=== PATIENT | female | born 1970 | race Caucasian/White ===

== ENCOUNTER → 2016-08-21 | Outpatient (CLI) | payer BC ==
[~2016-08-21] MED LIST: PRENTAB26 PO
--- NOTE | 2016-08-21 15:58 | MAMMOGRAPHY REPORT ---
BILATERAL DIGITAL DIAGNOSTIC MAMMOGRAM TOMOSYNTHESIS WITH CAD AND TARGETED LEFT ULTRASOUND: 7 CLINICAL HISTORY: 45-year-old woman presents for annual bilateral mammography in follow-up of probab le complicated cysts within the 10:00, 2:00 and 2:30 axes of the left breast. TECHNIQUE: Bilateral breast tomosynthesis in addition to standard 2D mammography was performed. Curr ent study was also evaluated with a Computer Aided Detection (CAD) system. COMPARISON: Comparison is made to exams dated: 05/23/2016 ultrasound, 05/23/2016 mammogram, 08/16/19 16 mammogram, and 12/01/2013 mammogram - [facility]. BREAST COMPOSITION: The tissue of both breasts is extremely dense, which lowers the sensitivity of mammography. FINDINGS: There is stable nodularity in the posterior left breast, best seen on the MLO view. Howev er, there is decreased size of a previously observed 9 mm mass in the lateral posterior left breast on the CC view, confirming a fluctuating cyst. There is a stable to decreased 12 mm circumscribed m ass in the far posterior right breast, along the posterior nipple line on the MLO view. There are s cattered and grouped stable microcalcifications diffusely throughout each breast. No spiculated or irregular mass, focal architectural distortion or new cluster of suspicious microcalcifications is s een bilaterally. Targeted ultrasound was performed in the 10:00, 2:00, 2:30 and 3:00 axes of the left breast. In the 10:00 breast, 17 m from the nipple, a parallel lobulated hypoechoic solid versus cystic mass is aga in seen. It currently measures 3.8 x 2.3 x 4.2 mm. Previous measurements based on the 08/23/2015 u ltrasound were 4.9 x 2.8 x 5.2 mm and this is considered unchanged given slight differences in measu ring technique. In the 2:00 axis, 2 cm from the nipple, a circumscribed oval parallel mixed hypoech oic and isoechoic masses again identified, measuring 4.0 x 2.2 x 7.0 mm, previously measured 5.2 x 2 .1 x 7.2 mm. This is also considered unchanged given slight differences in technique. However the hypoechoic mass in the 2:30 left breast, 2 cm from the nipple has decreased in size measuring 2.0 x 1.6 x 1.9 mm. incidental note is made of an anechoic benign simple cyst in the 3:00 left breast anibal uring 8.2 mm. Another 12 month follow-up is recommended for the above probable complicated cysts to ensure at least 2 years of stability to confirm benignity. IMPRESSION: ACR-BI-RADS CATEGORY 3: PROBABLY BENIGN, TARGETED ULTRASOUND ACR-BI-RADS CATEGORY 3: NH OBABLY BENIGN Bilateral screening mammography as well as repeat targeted left breast ultrasound is recommended in 12 months to ensure stability of probable complicated cysts in the 10:00 and 2:00 axes of the left b reast. The overall picture bilaterally is that of benign fibrocystic changes given multiple fluctua ting masses and diffuse bilateral microcalcifications. These results and recommendations were discussed with the patient at the time of the exam. Approximately 10% of breast cancers are not detected with mammography. A negative mammographic repor t should not delay biopsy if a clinically suggestive mass is present. Emily Gonzalez M.D. ay/:08/21/2016 13:25:35 Church Administrator: Eleanor REYES(Eric)([place]), [facility] letter sent: Follow Up Recommended 3 BI-RADS Code: ACR-BI-RADS Category 3: Probably Benign Ultrasound BI-RADS: ACR-BI-RADS Category 3: P robably Benign
== END | disposition home or self-care (01) ==
LOC: C.MAMM 09:42
PROVIDERS: ATTEND Obstetrics & Gynecology
DX: N60.02 Solitary cyst of left breast (principal); N63 Unspecified lump in breast; R92.0 Mammographic microcalcification found on diagnostic imaging of breast

== ENCOUNTER → 2016-08-29 | Outpatient (CLI) | payer BC | END | disposition home or self-care (01) | LOC: C.PAPS 13:20 | PROVIDERS: ATTEND Obstetrics & Gynecology | DX: Z01.419 Encounter for gynecological examination (general) (routine) without abnormal findings (principal) ==

== ENCOUNTER → 2017-08-23 | Outpatient (CLI) | payer OTHER ==
--- NOTE | 2017-08-26 08:08 | MAMMOGRAPHY REPORT ---
BILATERAL DIGITAL DIAGNOSTIC MAMMOGRAM TOMOSYNTHESIS WITH CAD AND TARGETED BILATERAL ULTRASOUND: 08/23 CLINICAL HISTORY: 46-year-old woman presents for follow-up in the left breast for probable comlpicate d cysts identified on prior ultrasound in the 2:00 and 10:00 axes. Also due for annual bilateral tyler mography. TECHNIQUE: Bilateral breast tomosynthesis in addition to standard 2D mammography was performed. Curre nt study was also evaluated with a Computer Aided Detection (CAD) system. COMPARISON: Comparison is made to exams dated: 08/21/2016 ultrasound, 08/21/2016 mammogram, 05/23/2016 ultrasound, 05/23/2016 mammogram, 08/16/2015 mammogram, and 12/01/2013 mammogram - [facility]. BREAST COMPOSITION: The tissue of both breasts is extremely dense, which lowers the sensitivity of m ammography. FINDINGS: There are diffuse bilateral benign-appearing microcalcifications, some of which demonstrate layering or teacup in on the MLO views, suggesting benign milk of calcium. There is asymmetry in th e lateral posterior left breast on the CC view, in the retroglandular fat, that appears somewhat keri lar to the prior 2015 and 2013 mammograms. There is increasing nodularity in the lateral posterior r ight breast on CC tomosynthesis slice 16/58, and in the medial right breast on tomosynthesis slice 37 /58, for which further evaluation with ultrasound was performed. There is increasingly prominent nod ularity in the far superior left breast on the MLO view. No spiculated or irregular mass, focal area of architectural distortion or new suspicious calcifications are seen. Targeted ultrasound was performed in both breasts, with particular attention to the medial and latera l right breast, superior left breast and the 2:00 and 10:00 axes of the left breast. In the 2:00 lef t breast, 2 cm from the nipple, there is a mixed echogenicity, predominantly hypoechoic solid versus cystic mass that it elongates in the radial plane. This lesion measures approximately 3.5 x 2.7 x 4. 8 mm and does not appear significantly changed comparing to the prior ultrasound dated 08/23/2015, at which time it measured 5.2 x 2.1 x 7.2 mm. With 2 years of stability is considered benign. In the 10:00 left breast, 2 cm from the nipple, the previously observed oval hypoechoic mass has decreased i n size, currently measuring 3.4 x 1.6 x 3.5 mm, previously 5.0 x 2.8 x 5.2 mm and given and interval decrease in size is considered benign. No further workup is needed at this time. There is a groupin g of cysts in the 4:00 left breast, 3 cm from the nipple, measuring approximately 11.8 mm, which like ly correlates with the left lateral asymmetry in the retroglandular fat area. No suspicious solid ma ss is seen in the superior left breast to correspond to the increasingly prominent nodular asymmetry, which could simply represent normal overlapping tissue. There is an anechoic cyst in the 2:00 right breast, 1 cm from the nipple, measuring 4.7 x 2.9 x 3.3 m m, and additional anechoic benign simple cysts in the lateral right breast, measuring 9.0 and 7.5 mm, respectively. These cysts likely account for the increased mammographic nodularity seen on the CC v iew. No suspicious solid masses seen in either breast on targeted ultrasound. IMPRESSION: ACR-BI-RADS CATEGORY 3: PROBABLY BENIGN, TARGETED ULTRASOUND ACR-BI-RADS CATEGORY 3: PRO BABLY BENIGN 1. Previously observed indeterminate hypoechoic solid versus cystic masses in the left 2:00 and 10:0 0 breast on ultrasound are stable or decreased in size comparing back to the 08/23/2015 ultrasound, t herefore considered benign. No further close follow-up is needed at this time regarding these partic ular lesions. 2. There are other cysts scattered in both breasts on targeted ultrasound, and bilateral mammographi c nodularity. Not all of the mammographic findings demonstrate completely circumscribed borders to b e considered multiple bilateral masses (a benign finding), although they most likely represent benign fibrocystic changes and overlapping tissue, given the benign sonographic findings of cysts. Overall , would recommend bilateral diagnostic tomosynthesis mammograms and possible ultrasound in 12 months given the bilateral mammographic nodularity and extremely dense breasts, in case any additional mammo graphic views and/or ultrasound are needed. These results and recommendations were discussed with the patient at the time of the exam. Approximately 10% of breast cancers are not detected with mammography. A negative mammographic report should not delay biopsy if a clinically suggestive mass is present. Emily Gonzalez M.D. ay/:08/23/2017 17:10:22 [employer]ic: Samina Shin RT(R)(M), [facility] letter sent: Follow Up Recommended 3 BI-RADS Code: ACR-BI-RADS Category 3: Probably Benign Ultrasound BI-RADS: ACR-BI-RADS Category 3: Pr obably Benign
== END | disposition home or self-care (01) ==
LOC: C.MAMM 09:37
PROVIDERS: ATTEND Obstetrics & Gynecology
DX: N63.21 Unspecified lump in the left breast, upper outer quadrant (principal); N63.22 Unspecified lump in the left breast, upper inner quadrant; N60.01 Solitary cyst of right breast; N60.02 Solitary cyst of left breast

== ENCOUNTER → 2017-09-13 | Outpatient (CLI) | payer OTHER | END | disposition home or self-care (01) | LOC: C.PAPS 13:58 | PROVIDERS: ATTEND Obstetrics & Gynecology | DX: Z01.419 Encounter for gynecological examination (general) (routine) without abnormal findings (principal) ==